=== PATIENT | female | born 1995 | race Caucasian/White ===

== ENCOUNTER 2018-02-09 18:31 | Emergency (ER) | payer BC ==
[~2018-02-09] VITALS: Ht 160 cm; Wt 54.4 kg
[2018-02-09 18:31] VITALS: BP_SYST 153
[2018-02-09] MEDS ORDERED: methylPREDNISolone SOD SUCC/PF 62.5 MG/ML VIAL IVP ONE (18:45)
[2018-02-09] MEDS ORDERED: IPRATROPIUM BROM 0.5 MG/2.5 ML VIAL.NEB (ATROVENT) INH ONE ×2 (18:45→19:00)
[2018-02-09] MEDS ORDERED: ALBUTEROL SULFATE 0.083% 2.5 MG/3 ML VIAL.NEB INH ONE ×2 (18:45→19:00)
[2018-02-09] MEDS ORDERED: methylPREDNISolone SOD SUCC/PF 62.5 MG/ML VIAL ONE (18:48)
[2018-02-09] MEDS ORDERED: LevALBUTEROL HCL 1.25 MG/0.5 ML *CONC.* VIAL.NEB (XOPENEX CONC.) INH ONE ×2 (20:45→22:21)
[2018-02-09] MEDS ORDERED: PROMETHAZINE 6.25 MG/ CODEINE 10 MG/ 5 ML PO ONE (21:30)
[2018-02-09 23:31] VITALS: BP_SYST 119
== END 2018-02-09 23:31 | disposition home or self-care (01) ==
LOC: SED 18:31
DX: J45.901 Unspecified asthma with (acute) exacerbation (principal); R03.0 Elevated blood-pressure reading, without diagnosis of hypertension
CPT/HCPCS: 71045; 94640; 96374; 99285; J2930; J7612; J7613; 93005; 99284